=== PATIENT | female | born 1970 | race Caucasian/White ===

== ENCOUNTER 2017-09-05 12:27 | Emergency (ER) | END 2017-09-05 14:53 | disposition home or self-care (01) ==

== ENCOUNTER 2017-09-11 13:54 | Emergency (ER) | END 2017-09-11 16:37 | disposition home or self-care (01) ==

== ENCOUNTER 2018-05-25 13:39 | Emergency (ER) | payer MEDICAID, OTHER ==
[~2018-05-25] VITALS: Wt 56.0 kg
[~2018-05-25 13:39] MED LIST: ALBU18HF INHALATION; ALBU2.5V3 NEB; AZIT250T PO; BENZ-6 PO; PRED20TA PO
[2018-05-25] MEDS ORDERED: ALBUTEROL 0.083% (NEB) 2.5 MG/3 ML AMP NEB STA (14:06)
[2018-05-25] MEDS ORDERED: predniSONE 20 MG TAB PO STA (14:06)
[2018-05-25] MEDS ORDERED: ALBU8.5H8 INH (14:27)
[2018-05-25] MEDS ORDERED: PRED20TA PO (14:27)
--- NOTE | 2018-05-25 14:36 | ERD ---
ER Documentation Chief Complaint Chief Complaint asthma exacerbation HPI 47 presents complaining of shortness of breath. Patient has a history of asthma. She was recently hospitalized in the [facility] approximately 3 weeks ago for an asthma exacerbation. At that time she was told "something with my EKG was abnormal." She signed herself out AGAINST MEDICAL ADVICE and return to the [place]. She then went to an urgent care today where she was continued to have asthma symptoms. During this time she had no chest pain, hemoptysis, fevers, chills. The nurse practitioner that saw her at the urgent care was concerned that she needed to have a evaluation for possible pulmonary embolism and brought the patient to the emergency department. Upon arrival, patient is reporting only her typical asthma symptoms. She reports no chest pain no fevers no hemoptysis and no significant sputum production. ROS All systems reviewed and are negative except as per history of present illness. Medications Home Meds Active Scripts Albuterol Sulfate* (Proair HFA*) 8.5 Gm Hfa.aer.ad, 2 PUFF INH Q4H PRN for WHEEZING AND SOB, #1 INHALER Prov:JUHI MAJANO 05/25/18 Prednisone* (Prednisone*) 20 Mg Tab, 60 MG PO DAILY for 5 Days, TAB Prov:JUHI MAJANO 05/25/18 Benzonatate* (Tessalon Perle*) 100 Mg Capsule, 100 MG PO Q8H PRN for COUGH, #20 CAP Prov:DIAMOND JUAN-C 09/11/17 Albuterol Sulfate* (Ventolin HFA*) 18 Gm Hfa.aer.ad, 2 PUFF INHALATION Q4H, #1 INHALER Prov:DIAMOND JUAN-C 09/11/17 Prednisone* (Prednisone*) 20 Mg Tab, 40 MG PO DAILY for 4 Days, TAB Prov:DIAMOND JUAN PA-C 09/11/17 Azithromycin* (Zithromax*) 250 Mg Tablet, 250 MG PO .LUCY DIRECTED, #6 TAB TAKE 500 MG (2 TABS) THE FIRST DAY THEN 250 MG (1 TAB) DAYS 2-5 Prov:DIAMOND JUAN-C 09/11/17 Albuterol Sulfate* (Albuterol Sulfate* Neb) 0.083%-3 Ml Neb, 2.5 MG NEB Q4 PRN for SHORTNESS OF BREATH, #30 EA Prov:BRYANT MOSES MD 09/05/17 Albuterol Sulfate* (Ventolin HFA*) 18 Gm Hfa.aer.ad, 2 PUFF INHALATION Q4H, #1 INHALER Prov:BRYANT MOSES MD 09/05/17 Prednisone* (Prednisone*) 20 Mg Tab, 40 MG PO DAILY for 4 Days, TAB Start September 06, 2017 Prov:BRYANT MOSES MD 09/05/17 Allergies Allergies: Coded Allergies: aspirin (Verified Allergy, Intermediate, swelling of the face, 09/05/17) PMhx/Soc History of Surgery: Yes ( c section x3,) Hx Neurological Disorder: No Hx Respiratory Disorders: Yes (asthma) Hx Cardiac Disorders: Yes (htn, high cholesterol) Hx Psychiatric Problems: No Hx Miscellaneous Medical Probl: No Hx Alcohol Use: No Hx Substance Use: No Hx Tobacco Use: Yes (stopped 2013) Smoking Status: Former smoker Physical Exam Vitals Vital Signs Date Temp Pulse Resp B/P (MAP) Pulse Ox O2 O2 Flow FiO2 Time Delivery Rate 05/25/18 81 20 96 21 14:18 05/25/18 98.7 91 20 157/90 98 13:43 (112) Physical Exam GENERAL: The patient is well developed and appropriate for usual state of health in no apparent distress HEENT: Pupils equal, round, and reactive to light. EOMI. There is no scleral icterus. NECK: C-spine is soft and supple, there is no meningismus. There is no cervical lymphadenopathy. LUNGS: Occasional wheeze bilaterally. No tachypnea or retractions. HEART: Regular rate and rhythm, no murmurs, clicks, rubs or gallops. ABDOMEN: Soft, non-tender, non-distended. There are bowel sounds in all four quadrants. No rebound or guarding. EXTREMITIES: There is no peripheral cyanosis or edema. No focal swelling or erythema. No Homans sign NEURO: The patient moves all four extremities with 5/5 strength. Cranial nerves II - XII are intact. Normal gait. Alert and oriented SKIN: There is no apparent rash or petechiae. HEME/LYMPHATIC: There is no evidence of excessive bruising or lymphedema. PSYCHIATRIC: The patient does not appear anxious or depressed. Results 24 hrs Current Medications Medications Dose Sig/Rebecca Start Time Status Last (Trade) Ordered Route PRN Stop Time Admin Dose Reason Admin Albuterol 5 mg ONCE STAT 05/25/18 DC 05/25/18 (Proventil NEB 14:06 14:15 0.083% (Neb)) 05/25/18 14:07 Prednisone 60 mg ONCE STAT 05/25/18 DC 05/25/18 (Prednisone) PO 14:06 14:14 05/25/18 14:07 Procedures/MDM Patient was taken to a room, seen and evaluated. Comfort measures were initiated. Diagnostic tests were ordered and reviewed. 3 LEAD RHYTHM STRIP: Normal sinus rhythm without ectopy EK lead EKG reviewed by myself: Normal Sinus Rhythm Normal [place] and intervals No ST elevation, depression, or T wave inversion Impression: Normal EKG RADIOLOGY: Reviewed with the radiologist REEVALUATION: After breathing treatments, patient had no evidence of respiratory distress or hypoxemia and seemed appropriate for discharge MEDICAL DECISION MAKIN-year-old female presents the emergency department with wheezing and ongoing symptoms consistent with her asthma. Patient has a normal EKG and no significant cardiac risk factors. She has no significant risk factors for pulmonary embolism other than the trip she took to the [facility] which was 2 weeks ago. Her symptoms are chronic and consistent with her asthma and not acute consistent with pulmonary embolism. At this time, after supportive care, she appears clinically well and seems appropriate for outpatient discharge. Departure Diagnosis: Primary Impression: Asthma Condition: Stable Patient Instructions: Asthma Additional Instructions: Please see your doctor if not improved the next 3-4 days. JUHI MAJANO May 25, 2018 14:36
[2018-05-25 15:07] VITALS: BP 140/78; PULSE 101; RESP 20
== END 2018-05-25 15:00 | disposition home or self-care (01) ==
LOC: FTE 13:39
DX: J45.901 Unspecified asthma with (acute) exacerbation (principal); I10 Essential (primary) hypertension; Z87.891 Personal history of nicotine dependence
CPT/HCPCS: 71045; 93005; 94664; J7512; Z7502; Z7610